=== PATIENT | male | born 1950 | race Caucasian/White ===

== ENCOUNTER 2023-05-13 09:28 | Outpatient (CLI) | payer OTHER ==
[2023-05-13] MEDS ORDERED: CYSTOGRAFIN 300 ML INFUS..BTL UR ONE (09:51)
== END 2023-05-13 19:22 | disposition home or self-care (01) ==
LOC: SRD 09:28
PROVIDERS: ATTEND Urology Pediatric Urology
DX: C61 Malignant neoplasm of prostate (principal)
CPT/HCPCS: 74430; 51600; Q9958